=== PATIENT | male | born 1955 ===

== ENCOUNTER → 2020-03-15 | Day surgery (SDC) | payer MEDICARE, OTHER ==
[~2020-03-15] MED LIST: Lactated Ringers 1,000 ML IV SCH; Lidocaine 1% 4 ML ONE; Lidocaine 1%/Sod Bicarbonate in NS 8.4% 1 ML Syringe IDERM PRN; Propofol 200 MG/20 ML SDV ONE; Sodium Chloride 0.9% 10 ML Syringe FLUSH PRN
--- NOTE | 2020-03-15 10:45 | PCM.PREANE ---
Preanesthetic Assessment - Procedure Proposed Procedure: Screening Colonoscopy - Anesthesia/Transfusion/Family Hx Anesthesia History: Prior Anesthesia Without Reaction Family History of Anesthesia Reaction: No Transfusion History: No Prior Transfusion(s) - Review of Systems General: No Symptoms Pulmonary: No Symptoms Cardiovascular: No Symptoms Gastrointestinal: No Symptoms Neurological: No Symptoms Other: Reports: None - Physical Assessment NPO Status Date: 03/15/20 NPO Status Time: 04:00 Vital Signs: Last Vital Signs Temp 36.5 C 03/15/20 09:55 Pulse 62 03/15/20 09:55 Resp 16 03/15/20 09:55 BP 143/86 H 03/15/20 09:55 Pulse Ox 93 L 03/15/20 09:55 Height: 1.8 m Weight: 115.212 kg ASA Class: 3 Mental Status: Alert & Oriented x3 Airway Class: Mallampati = 2 Dentition: Reports: Normal Dentition, [place](s) Thyro-Mental Finger Breadths: 2 Mouth Opening Finger Breadths: 2 ROM/Head Extension: Full Lungs: Clear to Auscultation, Normal Respiratory Effort Cardiovascular: Regular Rate, Regular Rhythm - Allergies Allergies/Adverse Reactions: Allergies Allergy/AdvReac Type Severity Reaction Status Date / Time No Known Allergies Allergy Verified 03/14/20 14:52 - Blood Blood Available: No Product(s) Available: None - Anesthesia Plan Pre-Op Medication Ordered: Beta Loc Beta Loc: Metoprolol Med Last Dose Date: 03/15/20 Med Last Dose Time: 06:00 - Acknowledgements Anesthesia Type Planned: MAC Pt an Appropriate Candidate for the Planned Anesthesia: Yes Alternatives and Risks of Anesthesia Discussed w Pt/Guardian: Yes Pt/Guardian Understands and Agrees with Anesthesia Plan: Yes PreAnesthesia Questionnaire HEENT History: Reports: Cataract, Impaired Vision Cardiovascular History: Reports: CAD, Congenital Septal Defect, Heart Murmur, High Cholesterol, Other (See Below) Other Cardiovascular History: partial ASD repair, a flutter, RBBB Respiratory History: Reports: None Gastrointestinal History: Reports: Other (See Below) Other Gastrointestinal History: ventral hernia Genitourinary History: Reports: Other (See Below) Other Genitourinary History: erectile dysfunction [employer] History: Reports: None Musculoskeletal History: Reports: None Neurological History: Reports: None Psychiatric History: Reports: None Endocrine/Metabolic History: Reports: Hypothyroidism, Obesity/BMI 30+ Hematologic History: Reports: None Immunologic History: Reports: None Oncologic (Cancer) History: Reports: None Dermatologic History: Reports: None - Past Surgical History Head Surgeries/Procedures: Reports: None HEENT Surgical History: Reports: Cataract Surgery Respiratory Surgical History: Reports: None GI Surgical History: Reports: Colonoscopy Female Surgical History: Reports: None Male Surgical History: Reports: None Endocrine Surgical History: Reports: None Neurological Surgical History: Reports: None Musculoskeletal Surgical History: Reports: None Dermatological Surgical History: Reports: None - SUBSTANCE USE Smoking Status *Q: Never Smoker Tobacco Use Within Last Twelve Months: No Second Hand Smoke Exposure: No Days Per Week of Alcohol Use: 1 Number of Drinks Per Day: 1 Total Drinks Per Week: 1 Recreational Drug Use History: No - HOME MEDS Home Medications: Home Meds Amiodarone [Cordarone] 100 mg PO DAILY 03/14/20 [History] Apixaban [Eliquis] 5 mg PO BID 03/14/20 [History] Aspirin [Halfprin] 81 mg PO DAILY 03/14/20 [History] Calcium Carbonate [Calcium] 600 mg PO DAILY 03/14/20 [History] Magnesium Oxide 500 mg PO DAILY 03/14/20 [History] Metoprolol Succinate 25 mg PO DAILY 03/14/20 [History] Multivitamin [Daily Multiple Vitamin] 1 tab PO DAILY 03/14/20 [History] [place]-3/DHA/Epa/Fish Oil [[place]-3 Fish Oil 1,200 MG Sfgl] 1,200 mg PO DAILY 03/14/20 [History] atorvaSTATin Calcium [Lipitor] 20 mg PO DAILY 03/14/20 [History] ramipriL [Altace] 10 mg PO DAILY 03/14/20 [History] - CURRENT (IN HOUSE) MEDS Current Meds: Current Medications Lactated Ringer's (Ringers, Lactated) 1,000 mls @ 125 mls/hr IV ASDIRECTED ROSAURA Stop: 03/15/20 23:00 Last Admin: 03/15/20 10:05 Dose: 125 mls/hr Documented by: Lidocaine/Sodium Bicarbonate (Buffered Lidocaine 1% In Ns 8.4%) 0.25 ml IDERM ONETIME PRN PRN Reason: Prior to IV Start Stop: 03/15/20 18:00 Last Admin: 03/15/20 10:05 Dose: 0.25 ml Documented by: Sodium Chloride (Saline Flush) 10 ml FLUSH ASDIRECTED PRN PRN Reason: Keep Vein Open Stop: 03/15/20 18:00
--- NOTE | 2020-03-15 12:41 | PCM.PRNOTE ---
- Free Text/Narrative Note: Date: 03/15/2020 Procedure: screening colonoscopy Endoscopist: Gavin Montague MD Findings: excellent prep. Single pedunculated polyp in proximal rectum. Detailed Report: The patient was taken to the endoscopy suite and placed in left lateral decubitus position. Time out was performed and monitored anesthesia care initiated. The anus appeared normal and digital rectal exam was unremarkable. The colonoscope was inserted into the anus and advanced to the cecum with ease. The ileocecal valve and appendiceal orifice were visualized. The prep was excellent. Mucosal surfaces were carefully inspected on slow withdrawal of the scope. Sigmoid diverticulosis was noted. In the proximal rectum, a pedunculated subcentimeter polyp was removed using the hot snare. No pathology noted on retroflexion within the rectum. Air was evacuated and the scope withdrawn; the patient tolerated the procedure well. Gavin Montague MD General Surgery
--- NOTE | 2020-03-15 12:48 | PCM48HPAN ---
Post Anesthesia Note - EVALUATION WITHIN 48HRS OF ANESTHETIC Vital Signs in Normal Range: Yes Patient Participated in Evaluation: Yes Respiratory Function Stable: Yes Airway Patent: Yes Cardiovascular Function Stable: Yes Hydration Status Stable: Yes Pain Control Satisfactory: Yes Nausea and Vomiting Control Satisfactory: Yes Mental Status Recovered: Yes Vital Signs: Last Vital Signs Temp 36.5 C 03/15/20 09:55 Pulse 62 03/15/20 09:55 Resp 16 03/15/20 09:55 BP 143/86 H 03/15/20 09:55 Pulse Ox 93 L 03/15/20 09:55 97.7 149/90 69 18 91%
== END | disposition home or self-care (01) ==
LOC: JD.SDS 09:59
PROVIDERS: ATTEND Surgery
DX: Z12.11 Encounter for screening for malignant neoplasm of colon (principal); D12.8 Benign neoplasm of rectum; K57.30 Diverticulosis of large intestine without perforation or abscess without bleeding; I10 Essential (primary) hypertension; E03.9 Hypothyroidism, unspecified; E78.00 Pure hypercholesterolemia, unspecified; Z79.899 Other long term (current) drug therapy; Z79.82 Long term (current) use of aspirin
CPT/HCPCS: 45385; 93005; J2001; J2704; J7120; 00812; 88305